=== PATIENT | male | born 1960 | race African-American/Black ===

== ENCOUNTER 2017-05-21 11:07 | Emergency (ER) | payer MEDICARE, MEDICAID ==
[~2017-05-21] VITALS: Ht 175.3 cm; Wt 106.0 kg
[2017-05-21 13:11] LABS: CLARITY URINE CLEAR (CLEAR); COLOR URINE YELLOW (YELLOW); GLUCOSE URINE NEGATIVE (NEGATIVE); KETONES URINE NEGATIVE (NEGATIVE); LEUKOCYTE ESTERASE URINE TRACE (NEGATIVE); NITRITE URINE NEGATIVE (NEGATIVE); OCCULT BLOOD URINE NEGATIVE (NEGATIVE); PH URINE 5.5 (4.5-8.0); PROTEIN URINE NEGATIVE (NEGATIVE); SPECIFIC GRAVITY URINE 1.007 (1.005-1.030); UROBILINOGEN URINE 0.2 E.U./dL (0.2-1.0)
[2017-05-21 14:39] VITALS: BP 117/73
== END 2017-05-21 14:59 | disposition left against medical advice (07) ==
LOC: ER 13:55
DX: M54.9 Dorsalgia, unspecified (principal); Z53.21 Procedure and treatment not carried out due to patient leaving prior to being seen by health care provider
CPT/HCPCS: 81001

== ENCOUNTER 2022-11-25 12:45 | Emergency (ER) | payer MEDICAID, MEDICARE ==
[~2022-11-25] VITALS: Ht 175.3 cm; Wt 105.0 kg
[2022-11-25 13:04] VITALS: BP 124/84
[2022-11-25 17:50] LABS: CLARITY URINE TURBID (CLEAR); COLOR URINE DARK YELLOW (YELLOW); KETONES URINE TRACE (NEGATIVE); LEUKOCYTE ESTERASE URINE 2+ (NEGATIVE); NITRITE URINE POSITIVE (NEGATIVE); OCCULT BLOOD URINE 3+ (NEGATIVE); PROTEIN URINE 2+ (NEGATIVE); SPECIFIC GRAVITY URINE 1.027 (1.005-1.030)
[2022-11-25] MEDS ORDERED: CEPH500C2 MT (17:55)
[2022-11-25] MEDS ORDERED: CEPHALEXIN 250MG CAPSULE PO NR (18:00)
== END 2022-11-25 18:03 | disposition home or self-care (01) ==
LOC: ER 13:02
DX: N39.0 Urinary tract infection, site not specified (principal); R31.9 Hematuria, unspecified
CPT/HCPCS: 81003; 87186; 99283